=== PATIENT | female | born 1975 | race Hispanic/Latino ===

== ENCOUNTER → 2021-01-13 | Outpatient (CLI) | payer BC | END | disposition home or self-care (01) | LOC: DTH 13:22 | PROVIDERS: ATTEND Surgery | DX: E66.01 Morbid (severe) obesity due to excess calories (principal); I10 Essential (primary) hypertension | CPT/HCPCS: 97802 ==

== ENCOUNTER 2021-06-03 07:17 | Inpatient (IN) | payer OTHER ==
[~2021-06-03] VITALS: Ht 162.6 cm; Wt 112.5 kg
[2021-06-03 16:57] LABS: BASOPHILS % (AUTO) 0.1 % (0.0-5.0); EOSINOPHILS % (AUTO) 1.6 % (0.0-8.0); LYMPHOCYTES % (AUTO) 40.3 % (21.0-51.0); MEAN CORPUSCULAR HEMOGLOBIN 28.8 pg (27.0-33.0); MEAN CORPUSCULAR HGB CONC 33.5 g/dL (32.0-36.0); MEAN CORPUSCULAR VOLUME 85.8 fL (79-99); NEUTROPHILS % (AUTO) 49.9 % (40.0-77.0); PLATELET COUNT (AUTO) 220 K/uL (130-400); RED BLOOD CELL COUNT(AUTO) 4.66 MIL/uL (4.00-5.50); RED CELL DISTRIBUTION WIDTH 12.8 % (11.0-15.5); WHITE BLOOD COUNT (AUTO) 6.9 K/uL (4.8-10.8)
[2021-06-03 17:07] LABS: CREATININE 0.8 mg/dL (0.5-1.5); POTASSIUM 4.1 mmol/L (3.5-5.1)
[2021-06-09 10:55] VITALS: BP 131/73
[2021-06-09] MEDS ORDERED: HYDR25TA PO (11:13)
[2021-06-09] MEDS ORDERED: METO-408 PO (11:13)
[2021-06-09] MEDS ORDERED: ERGO500093 PO (11:13)
[2021-06-09] MEDS ORDERED: LISI20TA24 PO (11:13)
[2021-06-10] VITALS (23 sets, daily range): BP systolic 100–180; BP diastolic 51–98
[2021-06-10] MEDS ORDERED: LACTATED RINGERS 1000ML 1,000 ML IV ONE (07:58)
[2021-06-10] MEDS ORDERED: CEFOXITIN SODIUM 2 GM VIAL ONE (07:59)
[2021-06-10] MEDS ORDERED: HEPARIN 5,000 UNIT VIAL ONE (10:40)
[2021-06-10] MEDS ORDERED: DEXAMETHASONE SOD PHOSPHATE 10MG/ML 1ML VIAL ONE (10:46)
[2021-06-10] MEDS ORDERED: LIDOCAINE PF 100MG/5ML (2%) SYRINGE 5ML ONE (10:46)
[2021-06-10] MEDS ORDERED: GLYCOPYRROLATE 1 MG/5 ML SYRINGE ONE (10:46)
[2021-06-10] MEDS ORDERED: PROPOFOL 10 MG/ML 20ML VIAL IV ONE (10:46)
[2021-06-10] MEDS ORDERED: ONDANSETRON 4MG INJ ONE (10:46)
[2021-06-10] MEDS ORDERED: SUCCINYLCHOLINE CHLORIDE 20 MG/ML 10 ML VIAL ONE (10:46)
[2021-06-10] MEDS ORDERED: FENTANYL CITRATE PF 50 MCG/1 ML 2ML VIAL ONE ×2 (10:46→12:13)
[2021-06-10] MEDS ORDERED: ROCURONIUM 10MG/1ML SYR 10 MG/ML ML ONE ×2 (10:47→12:14)
[2021-06-10] MEDS ORDERED: METHYLENE BLUE 5 MG/ML AMP ONE (10:51)
[2021-06-10] MEDS ORDERED: BUPIVACAINE/EPI/PF 0.5% 30ML VIAL IJ ONE (10:51)
[2021-06-10] MEDS ORDERED: MIDAZOLAM HCL 1 MG/ML 2ML VIAL ONE (10:59)
[2021-06-10] MEDS ORDERED: MEPERIDINE-PF 25 MG/ML SYG ONE (12:30)
[2021-06-10] MEDS ORDERED: NALOXONE HCL 0.4 MG/1 ML ML IVP PRN (15:00)
[2021-06-10] MEDS ORDERED: MEPERIDINE-PF 25 MG/ML SYG IV PRN (15:00)
[2021-06-10] MEDS ORDERED: LACTATED RINGERS 1000ML 1,000 ML IV SCH (15:00)
[2021-06-10] MEDS ORDERED: MORPHINE 2 MG SYG IM PRN ×2 (15:00)
[2021-06-10] MEDS ORDERED: PROMETHAZINE HCL 25 MG/ML 1ML AMPULE IM PRN ×4 (15:00)
[2021-06-10] MEDS ORDERED: HYDROMORPHONE PCA 10MG/50 ML ( 0.2 MG/ML ) IV PRN (15:00)
[2021-06-10] MEDS ORDERED: MORPHINE 4 MG SYG IM PRN (15:00)
[2021-06-10] MEDS: FAMOTIDINE 20MG VIAL IV SCH (20:58)
[2021-06-10] MEDS: HEPARIN 5,000 UNIT VIAL SQ SCH (21:10)
[2021-06-11 04:09] VITALS: BP 132/75
[2021-06-11 08:00] VITALS: BP 120/67
[2021-06-11] MEDS: FAMOTIDINE 20MG VIAL IV SCH (08:23)
[2021-06-11] MEDS: HEPARIN 5,000 UNIT VIAL SQ SCH (08:24)
[2021-06-11] MEDS ORDERED: LISINOPRIL 20 MG TABLET PO SCH (09:00)
[2021-06-11] MEDS ORDERED: METOPROLOL SUCCINATE 50 MG TAB.SR.24H PO SCH (09:00)
[2021-06-11 11:41] VITALS: BP 164/90
== END 2021-06-11 16:21 | disposition home or self-care (01) | DRG 621 ==
LOC: EDSTATUS 10:00 → DAHIP 06-10 07:27 → 4BH 06-10 14:09 → 4CH 06-11 09:16
PROVIDERS: ADMIT Surgery; ATTEND Surgery
PROC: 0DB64Z3 Excision of Stomach, Percutaneous Endoscopic Approach, Vertical (ICD-10-PCS; principal; 2021-06-10 10:55)
DX: E66.01 Morbid (severe) obesity due to excess calories (principal); Z68.41 Body mass index [BMI] 40.0-44.9, adult; I10 Essential (primary) hypertension; Z20.822 Contact with and (suspected) exposure to COVID-19
CPT/HCPCS: 36415; 80048; 85025; 87635; C9803; G0378; J0330; J0694; J1100; J1170; J1644; J2001; J2175; J2250; J2405; J2704; J3010; J3490; J7030; J7120; Q9968

== ENCOUNTER 2025-05-23 17:45 | Emergency (ER) | payer BC ==
[~2025-05-23] VITALS: Ht 162.6 cm; Wt 68.9 kg
[~2025-05-23 17:45] MED LIST: ERGO500093 PO; HYDR25TA PO; LISI20TA24 PO; METO-408 PO
--- NOTE | 2025-05-23 17:54 | ERN ---
ED Note History of Present Illness Stated Complaint: VAGINAL PROBLEM Chief Complaint: Vaginal Problems/Bleeding Time Seen by MD: 17:50 Dictation: PATIENT IS A 49-YEAR-OLD FEMALE COMING IN TODAY WITH COMPLAINTS OF FEELING LIKE SHE HAS A KIDNEY STONE LODGED IN HER VAGINA FOR THE LAST WEEK. SHE HAS NO FEVER NO CHILLS NO CHANGE IN URINATION. SHE STATES SHE HAS HAS A HYSTERECTOMY AND DOES NOT USE TAMPONS OR FOREIGN BODIES. SHE STATES SHE WENT TO HER PRIMARY CARE DOCTOR MONDAY WHO DID NOT EXAMINED HER, JUST COLLECTED URINE AND CALLED HER TODAY SAID THE URINE WAS CLEAR. DENIES VAGINAL BLEEDING. Allergies: Coded Allergies: No Known Drug Allergies (Unverified Allergy, Unknown, 06/09/21) Home Meds Reported Medications Hydrochlorothiazide (Hydrochlorothiazide) 25 Mg Tablet, 25 MG PO AM, TAB 06/09/21 Ergocalciferol (Vitamin D2) (Vitamin D2) 1,250 Mcg Capsule, 1250 MCG PO qfriday, CAP 06/09/21 Metoprolol Succinate (Metoprolol Succinate) 25 Mg Tab.er.24h, 25 MG PO AM, TAB 06/09/21 Lisinopril (Lisinopril) 20 Mg Tablet, 20 MG PO AM, TAB 06/09/21 Past Medical History Past Medical History: Hypertension, Kidney Stone Surgical History: Other History: Not Applicable RN Note Reviewed/Agreed w/PFSH: Yes Review of System Dictation CONSTITUTIONAL: NEGATIVE EXCEPT FOR HPI HEAD/FACE: NEGATIVE EXCEPT FOR HPI EENT: NEGATIVE EXCEPT FOR HPI RESPIRATORY: NEGATIVE EXCEPT FOR HPI GASTROINTESTINAL/ABDOMINAL: NEGATIVE EXCEPT FOR HPI GENITOURINARY: NEGATIVE EXCEPT FOR HPI VAGINAL FOREIGN BODY SENSATION MUSCULOSKELETAL: NEGATIVE EXCEPT FOR HPI INTEGUMENTARY: NEGATIVE EXCEPT FOR HPI NEUROLOGICAL/PSYCH: NEGATIVE EXCEPT FOR HPI HEMATOLOGIC/LYMPHATIC: NEGATIVE EXCEPT FOR HPI ALL SYSTEMS NEGATIVE, EXCEPT NOTED ABOVE. 13 POINT REVIEW OF SYSTEMS ASSESSED AND ALL NEGATIVE EXCEPT FOR ABOVE. Initial Vital Sign VS Vital Signs Date Time Temp Pulse Resp B/P (MAP) Pulse Ox O2 Delivery O2 Flow Rate FiO2 05/23/25 17:49 97.5 89 20 169/102 99 Room Air Physical Exam Dictation VITAL SIGNS REVIEWED GENERAL APPEARANCE: ALERT, ORIENTED X 3, NO ACUTE DISTRESS, WELL DEVELOPED, NOURISHED. HEAD AND FACE: NON-TRAUMATIC. EYES: PERRL, PINK CONJUNCTIVAS, EYELID NO TRAUMA, ANTERIOR CHAMBER WITH ARCUS SENILIS. EARS: PINNAS INTACT AND NO SIGNS OF TRAUMA OR ERYTHEMA EAR CANALS CLEAR AND NO DISCHARGE TM NO ERYTHEMA NOSE: NO DISCHARGE, NO BLEEDING. OROPHARYNX: MOUTH NORMAL, TONGUE PINK, PHARYNX CLEAR,NO ERYTHEMA, TONSILS NO EXUDATES, NO ABSCESSES NOTED, MUCOUS MEMBRANE MOIST NECK: SUPPLE, NON-TENDER, NO THYROMEGALY, NO MASSES, NO JVD, NO BRUITS BREAST:DEFERRED CHEST:NO TENDERNESS, NO CREPITUS, NO PARADOXICAL MOVEMENT, NO RETRACTIONS LUNGS:CLEAR, WELL-VENTILATED, SYMMETRIC, NO RALES, NO WHEEZING, NO RHONCHI, NO STRIDOR, GOOD BREATH SOUNDS BILATERALLY HEART: REGULAR RATE, REGULAR RHYTHM, NO MURMUR, NO GALLOPS VASCULAR: NO PERIPHERAL EDEMA, ABDOMEN: SOFT, POSITIVE BOWEL SOUNDS, NONDISTENDED, NO GUARDING, NONTENDER, NO REBOUND, NO MASSES NO HEPATOMEGALY, NO SPLENOMEGALY, NO BATEMAN'S SIGN, NO HERNIAS. RECTAL: DEFERRED GENITAL: DEFERRED NEUROLOGICAL: NORMAL SPEECH, MOTOR FUNCTION INTACT, SENSORY FUNCTION INTACT MUSCULOSKELETAL: NECK NONTENDER, FULL RANGE OF MOTION, BACK NONTENDER, FULL RANGE OF MOTION, EXTREMITIES: NONTENDER, FULL RANGE OF MOTION SKIN: COLOR PINK, DRY, NO TURGOR, NO RASH, NO LACERATIONS, NO ABRASIONS, NO CONTUSIONS. LYMPHATIC: DEFERRED Results (Laboratory/Radiology) Laboratory/Radiology Laboratory Tests Test 05/23/25 18:01 White Blood Count 6.7 K/uL (4.8-10.8) Red Blood Count 4.21 MIL/uL (4.00-5.50) Hemoglobin 12.4 g/dL (12.0-16.0) Hematocrit 35.9 % (36-48) L Mean Corpuscular Volume 85.3 fL (79-99) Mean Corpuscular Hemoglobin 29.5 pg (27.0-33.0) Mean Corpuscular Hemoglobin Concent 34.5 g/dL (32.0-36.0) Red Cell Distribution Width 12.7 % (11.0-15.5) Platelet Count 270 K/uL (130-400) Mean Platelet Volume 9.3 fL (7.5-10.5) Immature Granulocyte % (Auto) 0.1 % (0-1) Neutrophils (%) (Auto) 59.6 % (40.0-77.0) Lymphocytes (%) (Auto) 33.1 % (21.0-51.0) Monocytes (%) (Auto) 5.4 % (3.0-13.0) Eosinophils (%) (Auto) 1.5 % (0.0-8.0) Basophils (%) (Auto) 0.3 % (0.0-5.0) Neutrophils # (Auto) 4.0 K/uL (1.8-7.7) Lymphocytes # (Auto) 2.2 K/uL (1.0-4.8) Monocytes # (Auto) 0.4 K/uL (0.1-1.0) Eosinophils # (Auto) 0.10 K/uL (0.00-0.70) Basophils # (Auto) 0.02 K/uL (0.00-0.20) Absolute Immature Granulocyte (auto 0.01 K/uL (0-1) Nucleated Red Blood Cells 0.0 % (0.0-0.19) Sodium Level 145 mmol/L (136-145) Potassium Level 3.9 mmol/L (3.5-5.1) Chloride Level 106 mmol/L (101-111) Carbon Dioxide Level 30 mmol/L (21-32) Blood Urea Nitrogen 20 mg/dL (7-18) H Creatinine 0.8 mg/dL (0.5-1.0) Glomerular Filtration Rate Calc 90 mL/min (>90) Random Glucose 87 mg/dL (70-105) Total Calcium 9.4 mg/dL (8.5-10.1) 1911/PELVIC ULTRASOUND LIMITED REVEALS NOTHING IN THE INTROITUS NO LESIONS NO MASSES. [place] SHE SAW SOMETHING PROXIMAL THE URETHRAL OPENING. RECOMMENDED PELVIC EXAMINED WE WILL FOLLOW UP Labs Reviewed?: Yes ED Course ED Course Orders Procedure Category Date Status Time Cbc With Differential LAB 05/23/25 Complete 17:52 Basic Metabolic Panel LAB 05/23/25 Complete 17:52 Us Soft Tissue US 05/23/25 Taken Perineum 17:52 *Nursing CPOE 05/23/25 Transmitted Communication: 19:10 Vital Signs Date Time Temp Pulse Resp B/P (MAP) Pulse Ox O2 Delivery O2 Flow Rate FiO2 05/23/25 17:49 97.5 89 20 169/102 99 Room Air 0/MEDICAL DECISION-MAKING BASED ON BASIC LABS AND A ULTRASOUND TO RULE OUT MASS IN THE INTROITUS. PELVIC EXAM WAS PERFORMED PATIENT WILL BE REFERRED TO UROLOGY SHE STATES SHE HAS NO PROBLEMS WITH THE INITIATION OF URINE OR COMPLAINING EMPTYING HER BLADDER Medical Decision Making MDM MDM: DIFFERENTIAL DIAGNOSIS: VAGINAL MASS/LESION/CYSTOCELE/ELECTROLYTE IMBALANCE/DEHYDRATION RATIONALE: TESTS CONSIDERED AND ORDERED SECONDARY TO SHARED DECISION MAKING I NCLUDE: RADIOLOGY/LABS/PELVIC EXAM PREVIOUS OUTSIDE RECORDS REVIEWED: OLD ER VISITS. RISK OF COMPLICATION AND/OR MORBIDITY OR MORTALITY OF PATIENT MANAGEMENT: NONE MEDICATIONS-PER MEDICATION RECONCILIATION NEED FOR HOSPITALIZATION: PATIENT DOES NOT MEET CRITERIA FOR HOSPITALIZATION. NONE NEED FOR EMERGENCY MAJOR/MINOR SURGERY: NO THERE ARE NO SOCIAL CONCERNS WITH THIS PATIENT. PRESCRIPTION DRUG MANAGEMENT DIFLUCAN 200 PRESCRIPTIONS WILL INCLUDE SYMPTOMATIC CARE PATIENT'S PRIOR EXTERNAL MEDICAL RECORDS FROM OTHER ER VISITS WERE REVIEWED BY ME INDICATED. PRIOR TESTING AND RESULTS FROM PREVIOUS VISITS WERE REVIEWED. PRIOR TESTS WERE TAKEN INTO ACCOUNT WITH MEDICAL DECISION MAKING AND RESOURCE UTILIZATION, INDEPENDENT HISTORIAN/HISTORIANS WERE USED TO OBTAIN COMPLETE MEDICAL HISTORY. I INDEPENDENTLY INTERPRETED THE TEST THAT WERE PERFORMED, RESULTS WERE REVIEWED BY ME AND CONSIDERED FINDINGS ON RADIOLOGY IF ORDERED. MEDICAL MANAGEMENT AND EXAMINATION INTERPRETATION DISCUSSIONS WERE HAD BY ME WITH OTHER QUALIFIED HEALTHCARE PROFESSIONALS INDICATED FOR THE PATIENT'S CARE. Procedure Procedure Dictation: 1937/PROCEDURE EXPLAINED TO PATIENT SHE AGREED TO PROCEED AVIVA GARZAEXAMINATION SCORER NURSE IN ROOM WITH THE EXAM PATIENT PLACED IN LITHOTOMY POSITION EXTERNAL EXAM REVEALS POSSIBLE EARLY CANDIDIASIS WITH SOME DISCHARGE NOTED PATIEN HAS HAS A POSSIBLE EARLY CYSTOCELE PROXIMAL URETHRAL OPENING. THIS WAS EXPLAINED TO PATIENT AND ALL QUESTIONS AND DX & DISP Disposition: Discharge Departure Impression: Primary Impression: Cystocele Additional Impression: Vaginal candidosis Condition: Stable Scripts Fluconazole (Fluconazole) 150 Mg Tablet 1 TAB PO ONCE for 2 Days, #2 TAB 0 Refills ONE TABLET BY MOUTH X1 DOSE. MAY REPEAT IN 10 DAYS Prov: ANTONIA LÓPEZ 05/23/25 Additional Instructions: FOLLOW-UP WITH PRIMARY CARE PROVIDER IN 1 TO 2 DAYS. TAKE MEDICATIONS DIRECTED HERE IN THE EMERGENCY ROOM. OKAY TO CONTINUE HOME MEDICATIONS UNLESS OTHERWISE DISCUSSED DURING YOUR VISIT IN THE EMERGENCY ROOM TODAY. RETURN TO YOUR NEAREST EMERGENCY ROOM IF SYMPTOMS WORSEN OR IF THERE IS NO IMPROVEMENT. CALL 911 IF YOU NEED IMMEDIATE ASSISTANCE. TAKE TYLENOL OR MOTRIN OVER-THE-CO UNTER NEEDED AND IF NO CONTRAINDICATIONS ARE PRESENT. INCREASE ORAL HYDRATION. A WOUND CULTURE OR URINE CULTURE WAS ORDERED HERE IN THE EMERGENCY ROOM DEPARTMENT PLEASE FOLLOW-UP WITH PRIMARY CARE PROVIDER AND ADVISE THEM TO GET REPEAT PORTS FROM OUR FACILITY. IF YOU HAD ANY BRITTNEE WRAP/SPLINTS THAT WERE APPLIED HERE, PLEASE DO NOT REMOVE THEM UNTIL YOU SEE YOUR PRIMARY CARE OR SPECIALTY. TAKE DIFLUCAN DIRECTED X1 DOSE, THEN MAY REPEAT DOSE IN 10 DAYS. CALL UROLOGIST FOR AN APPOINTMENT IN THE NEXT 2-3 DAYS FOR FOLLOW UP AND MANAGEMENT Referrals: OMAR BRAMBILA (PCP) PERNELL GUERRERO MD Time of Disposition: 19:41 I have reviewed the case, and I agree with, Diagnosis and Plan ANTONIA LÓPEZ [employer] INSTALLER May 23, 2025 17:54
[2025-05-23 18:22] LABS: IMMATURE GRANULOCYTE ABSOLUTE 0.01 K/uL (0-1); NUCLEATED RED BLOOD CELLS 0.0 % (0.0-0.19); PLATELET COUNT (AUTO) 270 K/uL (130-400); RED BLOOD CELL COUNT(AUTO) 4.21 MIL/uL (4.00-5.50); RED CELL DISTRIBUTION WIDTH 12.7 % (11.0-15.5); WHITE BLOOD COUNT (AUTO) 6.7 K/uL (4.8-10.8)
[2025-05-23 18:30] VITALS: BP 160/94; PULSE 92; RESP 17; TEMP 98.2; O2SAT 98
[2025-05-23 18:31] LABS: CREATININE 0.8 mg/dL (0.5-1.0); GLOMERULAR FILTR. RATE CALC 90.0 mL/min (>90); GLUCOSE,RANDOM 87.0 mg/dL (70-105); SODIUM SERUM 145.0 mmol/L (136-145); UREA NITROGEN, BLOOD 20.0 mg/dL (7-18)
[2025-05-23] MEDS ORDERED: FLUC150T48 PO (19:44)
--- NOTE | 2025-05-23 20:09 | HMCIMG ---
EXAMINATION: SOFT TISSUE ULTRASOUND OF THE PERINEUM AND LABIA REGION. CLINICAL HISTORY: Foreign body sensation in the vagina. COMPARISON: None. TECHNIQUE: Real-time grayscale ultrasound images of the perineum and labia region. FINDINGS: There are no focal lesions or collections. No movement with Valsalva on translabial ultrasound. Post hysterectomy status. IMPRESSION: No significant abnormality. /[place]
== END 2025-05-23 19:59 | disposition home or self-care (01) ==
LOC: EDH 17:45
DX: N81.10 Cystocele, unspecified (principal); B37.31 Acute candidiasis of vulva and vagina; I10 Essential (primary) hypertension; Z87.442 Personal history of urinary calculi
CPT/HCPCS: 36415; 76857; 80048; 85025; 99284

== ENCOUNTER → 2025-05-31 | Outpatient (CLI) | payer BC ==
[~2025-05-31] MED LIST changes: +FLUC150T48 PO
== END | disposition home or self-care (01) ==
LOC: RAH 11:03
PROVIDERS: ATTEND Family Medicine
DX: Z12.31 Encounter for screening mammogram for malignant neoplasm of breast (principal)
CPT/HCPCS: 77067